=== PATIENT | male | born 1965 ===

== ENCOUNTER 2018-02-10 23:29 | Emergency (ER) | payer BC ==
--- NOTE | 2018-02-10 23:55 | C.PDOC ---
"History Of Present Illness 53 y/o male with PMHx of hypertension presents to the ED complaining of RLQ abdominal pain, onset after eating dinner around 7:00pm. Associated with nausea , and 1 episode of non-bloody vomiting. Patient states he had a similar episode of symptoms 1 month ago, but it was less intense then. He describes pain as sharp and stabbing. Last bowel movement was 2 hours ago. Denies bloody or dark stool, fever, chills, sweats, rash, back pain, diarrhea, dizziness, or other complaints. PMHx is also significant for diverticulitis and partial colectomy at [place]. Patient is followed by Dr. Ardon at [facility] and had a recent endoscopy that was normal. He reports taking his pantoprazole as instructed. On arrival, patient states pain is somewhat improved. Time Seen by Provider: 02/10/18 23:55 Chief Complaint (Nursing): Abdominal Pain History Per: Patient History/Exam Limitations: no limitations Onset/Duration Of Symptoms: Hrs Current Symptoms Are (Timing): Better Location Of Pain/Discomfort: RLQ Quality Of Discomfort: Sharp, Stabbing Associated Symptoms: Nausea, Vomiting Last Bowel Movement: Today Recent travel outside of the [place]: No Past Medical History Reviewed: Historical Data, Nursing Documentation, Vital Signs Vital Signs: Last Vital Signs Temp 97.7 F 02/10/18 23:51 Pulse 80 02/10/18 23:51 Resp 20 02/10/18 23:51 BP 132/84 02/10/18 23:51 Pulse Ox 95 02/11/18 01:03 - Medical History PMH: Diverticulitis, HTN (on Lisinopril) Surgical History: Appendectomy, Endoscopy (at [place]) Other Surgeries: Partial colectomy Family History: States: No Known Family Hx Review Of Systems Constitutional: Negative for: Fever, Chills, Sweats Cardiovascular: Negative for: Chest Pain Respiratory: Negative for: Shortness of Breath Gastrointestinal: Positive for: Nausea, Vomiting, Abdominal Pain. Negative for : Diarrhea, Constipation, Melena, Hematochezia, Hematemesis Genitourinary: Negative for: Dysuria, Frequency, Incontinence Musculoskeletal: Negative for: Back Pain Skin: Negative for: Rash Neurological: Negative for: Dizziness Physical Exam - Physical Exam Appears: Non-toxic, No Acute Distress Skin: Warm, Dry Head: Atraumatic, Normacephalic Eye(s): bilateral: Normal Inspection, PERRL, EOMI Oral Mucosa: Moist Neck: Normal, Normal ROM, Trachea Midline, No Midline Cervical Tenderness, No Paracervical Tenderness, Supple, Other (negative kernig's and brudzinskis) Chest: Symmetrical Cardiovascular: Rhythm Regular, Other (No rub) Respiratory: No Rales, No Rhonchi, No Wheezing Gastrointestinal/Abdominal: Soft, Tenderness (to the RLQ), No Guarding, No Rebound, Other (Large ex-lap incision, well healed) Extremity: Bilateral: Atraumatic, Normal Color And Temperature, Normal ROM Pulses: Left Dorsalis Pedis: Normal, Right Dorsalis Pedis: Normal Neurological/Psych: Oriented x3, Normal Speech ED Course And Treatment - Laboratory Results Result Diagrams: 02/11/18 00:40 02/11/18 00:40 O2 Sat by Pulse Oximetry: 95 (RA) Pulse Ox Interpretation: Normal Medical Decision Making Medical Decision Making: Impression: 53 y/o male with complaints of RLQ pain associated with nausea and vomiting, known hx of diverticulitis and s/p partial colectomy. Patient states current pain is not the same as prior episode of diverticulitis. Plan: --VBG --CMP --Lipase --CBC --Urinalysis --CT Abd/Pelvis w/ IV contrast --NSS IV fluids --Reassess and dispo Labs unremarkable 218 Ct resulted: EXAM: CT Abdomen and Pelvis With Intravenous Contrast EXAM DATE/TIME: 02/11/2018 12:36 AM CLINICAL HISTORY: 53 years old, male; Pain; Abdominal pain; Additional info: Abd pain after eating , HX of ex lap for diverticul TECHNIQUE: Axial computed tomography images of the abdomen and pelvis with intravenous contrast. All CT scans at this facility use at least one of these dose optimization techniques: automated exposure control; mA and/or kV adjustment per patient size (includes targeted exams where dose is matched to clinical indication); or iterative reconstruction. Coronal and sagittal reformatted images were created and reviewed. COMPARISON: No relevant prior studies available. FINDINGS: Lower thorax: No acute findings. ABDOMEN: Liver: There is a diffuse decrease in hepatic parenchymal density, consistent with fatty infiltration. Gallbladder and bile ducts: Normal. No calcified stones. No ductal dilation. Pancreas: Normal. No ductal dilation. Spleen: Normal. No splenomegaly. Adrenals: Normal. No mass. Kidneys and ureters: There is a right renal collecting system calcification. There is no evidence of hydronephrosis. The left kidney is normal. JOSELYN BELL | Preliminary Radiology Report CONFIDENTIALITY STATEMENT This report is intended only for the use of the referring physician, and only in accordance with law, If you received this in error, call [phone] Page 2 of 2 Stomach and bowel: Partial right hemicolectomy. There is no wall thickening or pericolonic stranding to suggest colitis. There is no evidence of intestinal obstruction. Appendix: No evidence of appendicitis. PELVIS: Bladder: Unremarkable as visualized. Reproductive: Unremarkable as visualized. ABDOMEN and PELVIS: Intraperitoneal space: Normal. No free air. No significant fluid collection. Bones/joints: No acute fracture. No dislocation. Soft tissues: Unremarkable. Vasculature: The vasculature demonstrates diffuse mild atherosclerotic calcification. Lymph nodes: Normal. No enlarged lymph nodes. IMPRESSION: No evidence of an acute intra-abdominal or pelvic abnormality. Likely Gastritis will d/c home with return indicaitons and followup Disposition - Disposition Disposition Time: 02:19 Condition: GOOD Forms: [facility] (Macanese) - Clinical Impression Clinical Impression: Gastritis - Scribe Statement The provider has reviewed the documentation as recorded by the Scribe (Coby Azul) Provider Attestation: All medical record entries made by the Scribe were at my direction and personally dictated by me. I have reviewed the chart and agree that the record accurately reflects my personal performance of the history, physical exam, medical decision making, and the department course for this patient. I have also personally directed, reviewed, and agree with the discharge instructions and disposition."
[2018-02-10 23:57] VITALS: RESP 20; TEMP 97.7
[2018-02-11] MEDS ORDERED: Sodium Chloride 0.9% 1,000 ML IV SCH (00:15)
[2018-02-11] MEDS ORDERED: Sodium Chloride 0.9% 1,000 ML ONE (00:19)
[2018-02-11 00:43] LABS: BASO % 0.6 % (0.0-2.0); EOS # 0.1 K/uL (0.0-0.7); EOS % 1.9 % (0.0-4.0); HEMOGLOBIN 14.5 g/dL (12.0-18.0); LYMPH # 1.4 K/uL (1.0-4.3); LYMPH % 18.5 % (20.0-40.0); MEAN CELL VOLUME 86.1 fL (80.0-94.0); MEAN CORPUSCULAR HEMOGLOBIN 29.8 pg (27.0-31.0); MEAN CORPUSCULAR HGB CONC 34.6 g/dL (33.0-37.0); MEAN PLATELET VOLUME 7.3 fL (7.2-11.7); MONO # 0.6 K/uL (0.0-0.8); MONO % 7.9 % (0.0-10.0); NEUT # 5.4 K/uL (1.8-7.0); NEUT % 71.1 % (50.0-75.0); RBC 4.89 Mil/uL (4.40-5.90); RED CELL DISTRIBUTION WIDTH 14.5 % (11.5-14.5); WHITE BLOOD COUNT 7.6 K/uL (4.8-10.8)
[2018-02-11 00:46] LABS: URINE BILIRUBIN NEGATIVE (NEGATIVE); URINE BLOOD NEGATIVE (NEGATIVE); URINE CLARITY Clear (Clear); URINE COLOR Straw (YELLOW); URINE GLUCOSE (UA) NORMAL (Normal); URINE LEUKOCYTE ESTERASE NEG Leu/uL (Negative); URINE PROTEIN NEGATIVE (NEGATIVE); URINE UROBILINOGEN NORMAL mg/dL (0.2-1.0)
[2018-02-11 00:54] LABS: VENOUS BLOOD GAS BASE EXCESS 2.4 mmol/L (0.0-2.0); VENOUS BLOOD GAS PCO2 42 mmHg (40-60); VENOUS BLOOD GAS PO2 72 mm/Hg (30-55); VENOUS BLOOD PH 7.42 (7.32-7.43)
[2018-02-11 00:56] LABS: ALB/GLOB RATIO 1.4 (1.0-2.1); ALBUMIN 4.4 g/dL (3.5-5.0); ALT/SGPT 61 U/L (21-72); AST/SGOT 41 U/L (17-59); BLOOD UREA NITROGEN 18 mg/dL (9-20); CALCIUM 9.1 mg/dl (8.6-10.4); GFR NON-AFRICAN AMERICAN > 60; LIPASE 152 U/L (23-300)
[2018-02-11] MEDS ORDERED: Iodixanol 320 MG/ML 100 ML BOTTLE IV ONE (01:13)
[2018-02-11 02:40] VITALS: BP 119/79; PULSE 70; O2SAT 98
--- NOTE | 2018-02-11 07:39 | CT ---
Date of service: 02/11/2018 PROCEDURE: CT Abdomen and Pelvis without intravenous contrast HISTORY: Abdominal pain COMPARISON: None. TECHNIQUE: Multiple contiguous axial images were performed through the abdomen and pelvis with the use of intravenous contrast. Subsequently, sagittal and coronal reformatted images were obtained. Radiation dose: Total exam DLP = 536 mGy-cm. This CT exam was performed using one or more of the following dose reduction techniques: Automated exposure control, adjustment of the mA and/or kV according to patient size, and/or use of iterative reconstruction technique. FINDINGS: LOWER THORAX: Unremarkable. LIVER: Diffuse decrease in hepatic parenchymal density consistent with fatty infiltration. GALLBLADDER AND BILE DUCTS: Unremarkable. PANCREAS: Unremarkable. No gross lesion or ductal dilatation. SPLEEN: Unremarkable. ADRENALS: Unremarkable. No mass. KIDNEYS AND URETERS: Right renal collecting system calcification measuring 4 millimeters. VASCULATURE: Unremarkable. No aortic aneurysm. BOWEL: Partial right hemicolectomy. Few scattered diverticuli in the left hemicolon. APPENDIX: No findings to suggest acute appendicitis. PERITONEUM: Unremarkable. No free fluid. No free air. LYMPH NODES: Unremarkable. No enlarged lymph nodes. BLADDER: Unremarkable. REPRODUCTIVE: Heterogeneous prostate with calcifications. BONES: No acute fracture. OTHER FINDINGS: Atherosclerotic calcification in the vasculature. IMPRESSION: Negative acute. Additional findings as above. These findings were preliminarily reported at 2:10 a.m. on 02/11/[address] Emy Marshall from [facility].
== END 2018-02-11 02:45 | disposition home or self-care (01) ==
LOC: C.ER 23:29
DX: K29.70 Gastritis, unspecified, without bleeding (principal); I10 Essential (primary) hypertension
CPT/HCPCS: 74177; 80053; 81001; 82803; 83690; 85025; 99285; J7030; Q9967

== ENCOUNTER 2018-08-01 19:47 | Emergency (ER) | payer BC ==
[2018-08-01 20:27] VITALS: RESP 20
--- NOTE | 2018-08-01 21:00 | C.PDOC ---
History Of Present Illness 53 year old male presents to the ED c/o abdominal pain, feeling gassy and bloated. Patient states he has increased eructations, took Pepcid with no relief. Patient denies fever, chills, nausea, vomit, diarrhea, CP, SOB, palpitations. Time Seen by Provider: 08/01/18 21:00 Chief Complaint (Nursing): Abdominal Pain History Per: Patient History/Exam Limitations: no limitations Onset/Duration Of Symptoms: Days Current Symptoms Are (Timing): Still Present Location Of Pain/Discomfort: Epigastric Radiation Of Pain To:: None Quality Of Discomfort: Gas Associated Symptoms: denies: Nausea, Vomiting, Diarrhea, Urinary Symptoms Recent travel outside of the [place] States: No Additional History Per: Patient Past Medical History Reviewed: Historical Data, Nursing Documentation, Vital Signs Vital Signs: Last Vital Signs Temp 97.6 F 08/01/18 20:19 Pulse 82 08/01/18 20:19 Resp 20 08/01/18 20:19 BP 160/107 H 08/01/18 20:19 Pulse Ox 97 08/01/18 20:19 - Medical History PMH: Diverticulitis, HTN (on Lisinopril) Surgical History: Appendectomy, Endoscopy (at [place]) Family History: States: Unknown Family Hx - Social History Hx Alcohol Use: No Hx Substance Use: No Review Of Systems Constitutional: Negative for: Fever, Chills Cardiovascular: Negative for: Chest Pain, Palpitations Respiratory: Negative for: Shortness of Breath Gastrointestinal: Positive for: Abdominal Pain. Negative for: Nausea, Vomiting, Diarrhea Genitourinary: Negative for: Dysuria Musculoskeletal: Negative for: Back Pain Skin: Negative for: Rash Neurological: Negative for: Weakness, Numbness Physical Exam - Physical Exam Appears: Non-toxic, No Acute Distress Skin: Warm, Dry Head: Normacephalic Eye(s): bilateral: Normal Inspection Oral Mucosa: Moist Neck: Supple Chest: Symmetrical Cardiovascular: Rhythm Regular Respiratory: No Rales, No Rhonchi, No Wheezing Gastrointestinal/Abdominal: Soft, Tenderness (mid epigastric), No Guarding, No Rebound Back: No CVA Tenderness Extremity: Bilateral: Atraumatic, Normal Color And Temperature, Normal ROM Neurological/Psych: Oriented x3, Normal Speech, Normal Cognition Gait: Steady ED Course And Treatment - Laboratory Results Result Diagrams: 08/01/18 21:21 08/01/18 21:21 ECG: Interpreted By Me, Viewed By Me ECG Rhythm: Sinus Rhythm (67), 1st Degree HB, Nonspecific Changes O2 Sat by Pulse Oximetry: 97 (ON RA) Pulse Ox Interpretation: Normal Progress Note: Plan: - EKG. - Labs. - Protonix 40 mg IVP. - UA Reevaluation Time: 01:31 Reassessment Condition: Improved Medical Decision Making Medical Decision Making: Upon provider reevaluation patient is feeling better, is medically stable, and requires no further treatment in the ED at this time. Patient will be discharged home with Rx for protonix . Counseling was provided and all questions were answered regarding diagnosis and need for follow up with the referred clinic. There is agreement to discharge plan. Return if symptoms persist or worsen. Disposition Counseled Patient/Family Regarding: Studies Performed, Diagnosis, Need For Followup, Rx Given - Disposition Referrals: [facility] [Outside] [facility] [Outside] Disposition: HOME/ ROUTINE Disposition Time: 21:00 Condition: FAIR Additional Instructions: Please return if symptoms recur Prescriptions: Pantoprazole Sodium [Protonix] 40 mg PO DAILY #15 ect Instructions: Acute Abdomen (Belly Pain), Adult (DC), Gastritis (DC) Forms: [facility] (Hebrew) - Clinical Impression Clinical Impression: Abdominal pain, Gastritis - Scribe Statement The provider has reviewed the documentation as recorded by the Scribe Walt Sawyer All medical record entries made by the Scribe were at my direction and personally dictated by me. I have reviewed the chart and agree that the record accurately reflects my personal performance of the history, physical exam, medical decision making, and the department course for this patient. I have also personally directed, reviewed, and agree with the discharge instructions and disposition.
[2018-08-01 21:26] LABS: BASO % 0.6 % (0.0-2.0); EOS # 0.2 K/uL (0.0-0.7); EOS % 2.5 % (0.0-4.0); HEMOGLOBIN 15.5 g/dL (12.0-18.0); LYMPH # 1.8 K/uL (1.0-4.3); LYMPH % 22.1 % (20.0-40.0); MEAN CELL VOLUME 88.2 fL (80.0-94.0); MEAN CORPUSCULAR HEMOGLOBIN 29.4 pg (27.0-31.0); MEAN CORPUSCULAR HGB CONC 33.4 g/dL (33.0-37.0); MEAN PLATELET VOLUME 7.1 fL (7.2-11.7); MONO # 0.6 K/uL (0.0-0.8); MONO % 7.9 % (0.0-10.0); NEUT # 5.3 K/uL (1.8-7.0); NEUT % 66.9 % (50.0-75.0); NRBC % 0.1 % (0.0-2.0); RBC 5.25 Mil/uL (4.40-5.90); RED CELL DISTRIBUTION WIDTH 13.5 % (11.5-14.5)
[2018-08-01 21:40] LABS: ALB/GLOB RATIO 1.3 (1.0-2.1); ALBUMIN 4.6 g/dL (3.5-5.0); ALT/SGPT 52 U/L (21-72); AST/SGOT 49 U/L (17-59); BLOOD UREA NITROGEN 21 mg/dL (9-20); CALCIUM 8.8 mg/dl (8.6-10.4); GFR NON-AFRICAN AMERICAN > 60; LIPASE 132 U/L (23-300)
[2018-08-01 21:42] LABS: INR 1.2; PROTHROMBIN TIME 13.2 SECONDS (9.7-12.2)
[2018-08-01 21:47] LABS: URINE BILIRUBIN NEGATIVE (NEGATIVE); URINE BLOOD NEGATIVE (NEGATIVE); URINE CLARITY Clear (Clear); URINE COLOR Yellow (YELLOW); URINE GLUCOSE (UA) NORMAL (Normal); URINE LEUKOCYTE ESTERASE NEG Leu/uL (Negative); URINE PROTEIN NEGATIVE (NEGATIVE); URINE UROBILINOGEN NORMAL mg/dL (0.2-1.0)
[2018-08-01] MEDS ORDERED: Iodixanol 320 MG/ML 100 ML BOTTLE IV ONE (23:20)
[2018-08-02 00:32] VITALS: TEMP 98.1
[2018-08-02 01:46] VITALS: BP 139/93; PULSE 68; O2SAT 98
--- NOTE | 2018-08-02 12:41 | CT ---
Date of service: 08/01/2018 PROCEDURE: CT Abdomen and Pelvis with contrast HISTORY: abd pain COMPARISON: Comparison is made to the previous study dated 02/11/2018 TECHNIQUE: Contrast dose: 100 mL of Visipaque 320 intravenously. Radiation dose: Total exam DLP = 567.6 mGy-cm. This CT exam was performed using one or more of the following dose reduction techniques: Automated exposure control, adjustment of the mA and/or kV according to patient size, and/or use of iterative reconstruction technique. FINDINGS: LOWER THORAX: Unremarkable. LIVER: Mild hepatomegaly and moderate hepatic steatosis are again noted. GALLBLADDER AND BILE DUCTS: No evidence of acute cholecystitis. The pancreas is small in size. The main pancreatic duct is not dilated. PANCREAS: Unremarkable. No gross lesion or ductal dilatation. SPLEEN: Unremarkable. ADRENALS: Unremarkable. No mass. KIDNEYS AND URETERS: 3 millimeter nonobstructing calculus at the midpole of the right kidney is noted. no hydronephrosis. No solid mass. VASCULATURE: Unremarkable. No aortic aneurysm. Mild atherosclerotic calcification noted. BOWEL: Again noted are postsurgical changes suggestive of right colectomy. Or no obstruction. No gross mural thickening. APPENDIX: The appendix is not visualized and likely resected with the right colon. PERITONEUM: Unremarkable. No free fluid. No free air. LYMPH NODES: Unremarkable. No enlarged lymph nodes. BLADDER: Unremarkable. REPRODUCTIVE: The prostate is mildly enlarged contains coarse calcification. BONES: No acute fracture. OTHER FINDINGS: None. IMPRESSION: 3 millimeter nonobstructing right renal calculus. No evidence of hydronephrosis or hydroureter. No evidence of acute pathology otherwise in the abdomen and pelvis. Additional findings as discussed above. Preliminary report was submitted by [facility] contains concordant findings.
--- NOTE | 2018-08-06 12:32 | CARD ---
APPROVED REPORT Date of service: 08/01/2018 EKG Measurement Heart [id number] <Conclusion> Sinus rhythm with 1st degree AV block Nonspecific T wave abnormality Abnormal ECG
== END 2018-08-02 01:46 | disposition home or self-care (01) ==
LOC: C.ER 19:47
DX: K29.70 Gastritis, unspecified, without bleeding (principal); I10 Essential (primary) hypertension
CPT/HCPCS: 74177; 80053; 81001; 83690; 85025; 85610; 85730; 96374; 96375; 99285; C9113; J1885; Q9967